=== PATIENT | female | born 1990 | race Caucasian/White ===

== ENCOUNTER 2019-09-06 11:32 | Inpatient (IN) | payer OTHER ==
[~2019-09-06] VITALS: Ht 165.1 cm; Wt 71.2 kg
[2019-09-20] MEDS ORDERED: PRENATAL CAPLE1 EAC1 PO (03:53)
== END 2019-09-22 12:42 | disposition home or self-care (01) | DRG 807 ==
LOC: LDR 09-13 11:45 → SURG-SUITE 09-20 03:31
PROVIDERS: ADMIT Obstetrics & Gynecology Maternal & Fetal Medicine
PROC: 10E0XZZ Delivery of Products of Conception, External Approach (ICD-10-PCS; principal; 2019-09-20)
PROC: 4A1HXCZ Monitoring of Products of Conception, Cardiac Rate, External Approach (ICD-10-PCS; 2019-09-20)
DX: O80 Encounter for full-term uncomplicated delivery (principal); Z37.0 Single live birth; Z3A.38 38 weeks gestation of pregnancy

== ENCOUNTER 2019-09-19 15:13 | Outpatient (CLI) | payer OTHER ==
[2019-09-20] MEDS ORDERED: PRENATAL CAPLE1 EAC1 PO (03:53)
== END 2019-09-19 17:01 | disposition home or self-care (01) ==
LOC: OBS/DEL 15:13
DX: O60.03 Preterm labor without delivery, third trimester (principal)